=== PATIENT | female | born 1965 | race Caucasian/White ===

== ENCOUNTER 2018-10-03 11:21 | Inpatient (IN) | payer BC ==
[~2018-10-03] VITALS: Ht 162.6 cm; Wt 84.0 kg
[2018-12-17] VITALS (10 sets, daily range): BP systolic 93–121; BP diastolic 50–64; PULSE 56–64; TEMP 97.7–98
[2018-12-17] MEDS ORDERED: VITAMIN C500 MG PO (07:34)
[2018-12-17] MEDS ORDERED: IRON18 MG1 PO (07:34)
[2018-12-17] MEDS ORDERED: FOLIC ACID 40400 MCG PO (07:35)
[2018-12-17] MEDS ORDERED: EFFEXOR 3737.5 MG/TA PO (07:35)
[2018-12-17] MEDS ORDERED: [UNRECOGNIZED DRUG - MIXTURE] (07:37)
[2018-12-18 00:03] VITALS: BP 115/61; PULSE 67; TEMP 99.1
[2018-12-18 03:54] VITALS: BP 120/61; PULSE 75; TEMP 98.5
[2018-12-18 06:38] LABS: HEMATOCRIT 37.2 % (37.0-47.0)
[2018-12-18 07:28] VITALS: BP 117/67; PULSE 77; TEMP 98.2
[2018-12-18 10:40] VITALS: BP 128/63; PULSE 67; TEMP 98.3
[2018-12-18 15:54] VITALS: BP 131/61; PULSE 87; TEMP 98.2
[2018-12-18 20:00] VITALS: BP 134/62; PULSE 74; TEMP 98.3
[2018-12-19] VITALS: BP 132/65; PULSE 78; TEMP 98.2
[2018-12-19 04:00] VITALS: BP 123/58; PULSE 76; TEMP 98.1
[2018-12-19] MEDS ORDERED: XARELTO10 MG PO (06:55)
[2018-12-19] MEDS ORDERED: ROXICODONE 55 MG/TAB PO (06:56)
[2018-12-19] MEDS ORDERED: ULTRAM 50MG TAB50 MG PO (06:57)
[2018-12-19] MEDS ORDERED: TYLENOL 500MG500 MG PO (06:57)
[2018-12-19] MEDS ORDERED: COLACE 100100 MG/CAP PO (06:58)
[2018-12-19 08:33] VITALS: BP 112/51; PULSE 83; TEMP 99
[2018-12-19 08:38] LABS: HEMOGLOBIN 11.3 g/dl (12.5-16.0)
[2018-12-19 08:44] LABS: HEMATOCRIT 35.2 % (37.0-47.0)
== END 2018-12-19 11:45 | disposition home or self-care (01) | DRG 470 ==
LOC: JCC 12-17 06:59
PROVIDERS: ADMIT Orthopaedic Surgery
PROC: 0SRD0J9 Replacement of Left Knee Joint with Synthetic Substitute, Cemented, Open Approach (ICD-10-PCS; principal; 2018-12-17 09:30)
DX: M17.12 Unilateral primary osteoarthritis, left knee (principal); E03.9 Hypothyroidism, unspecified; G89.29 Other chronic pain; M54.9 Dorsalgia, unspecified
CPT/HCPCS: A4314; C1776; J0690; J2250; J2704; J7030

== ENCOUNTER → 2019-05-19 | Outpatient (CLI) | payer BC ==
[~2019-05-19] MED LIST: COLACE 100100 MG/CAP PO; EFFEXOR 3737.5 MG/TA PO; FOLIC ACID 40400 MCG PO; IRON18 MG1 PO; ROXICODONE 55 MG/TAB PO; TYLENOL 500MG500 MG PO; ULTRAM 50MG TAB50 MG PO; VITAMIN C500 MG PO; XARELTO10 MG PO; [UNRECOGNIZED DRUG - MIXTURE]
[2019-05-19 16:03] LABS: HEMATOCRIT 40.6 % (37.0-47.0); HEMOGLOBIN 13.3 g/dl (12.5-16.0); MEAN CELL VOLUME 92 fl (80.0-100.0); MEAN CORPUSCULAR HEMOGLOBIN 30 pg (27.0-31.0); MEAN CORPUSCULAR HGB CONC 33 g/dl (33.0-37.0); MEAN PLATELET VOLUME 11.6 fl (7.4-10.4); PLATELET COUNT 277 K/mm3 (130-400); RED BLOOD COUNT 4.42 M/mm3 (4.10-5.30); REDCELL DISTRIBUTION WIDTH-CV 13.5 % (11.5-14.5)
[2019-05-19 16:48] LABS: ERYTHROCYTE SEDIMENTATION RATE 8 mm/hr (0-30)
== END ==
LOC: COL.LAB 15:19
PROVIDERS: Orthopaedic Surgery
DX: M25.562 Pain in left knee (principal); Z96.652 Presence of left artificial knee joint